=== PATIENT | female | born 1970 | race Caucasian/White ===

== ENCOUNTER 2019-10-11 02:12 | Outpatient (CLI) | payer BC, SELFPAY ==
[2019-10-11 18:20] LABS: SARS-CoV-2 RNA PCR Negative
== END 2019-10-11 02:13 | disposition home or self-care (01) ==
LOC: ANHCOVIDDT 02:13
PROVIDERS: PCP Internal Medicine; Visit Provider Obstetrics & Gynecology
DX: Z01.812 Encounter for preprocedural laboratory examination (principal); Z11.59 Encounter for screening for other viral diseases
CPT/HCPCS: 87635; C9803; U0003

== ENCOUNTER 2019-10-13 01:43 | Day surgery (SDC) | payer BC, SELFPAY ==
[2019-10-08 08:46] VITALS: BMI 36.3
[2019-10-13 07:44] VITALS: BP 129/82; PULSE 68; RESP 16; TEMP 36.1; O2SAT 98
[2019-10-13] MEDS: LACTATED RINGERS 1,000 ML 30 ML IV CONT (08:06)
[2019-10-13] MEDS: ACETAMINOPHEN 500 MG TABLET 1000 MG PO (08:09)
--- NOTE | 2019-10-13 08:10 | WPDANESEPPF ---
Anes - Initial Pre Proc Eval Procedure: Operation Date: 10/13/19 09:30 Proposed Procedures p Hysteroscopy with Biopsy of Endometrium - María De Anda MD Date/Time: 10/13/19 08:10 Surgeon: María De Anda MD Pre Op Diagnosis: post menopausal bleeding Patient Data Age: 48 Gender: F Height: 5 ft 3 in Weight: 91.6 kg Allergies Allergy/AdvReac Type Severity Reaction Status Date / Time No Known Allergies Allergy Unverified 10/13/19 07:56 Home Medications Medication Instructions Recorded Confirmed Type cholecalciferol (vitamin D3) 125 mcg PO DAILY 10/08/19 10/13/19 History [Vitamin D3] Patient hx anesthesia problems: none Family hx anesthesia problems: none [facility] Past Medical History Medical History Hx of migraines Social History Social History Smoking status: Never smoker Substance use: current Substance use type: marijuana Last use: 1 MONTH AGO Spiritual care concerns: No Anes - Eval Final PreProcedure Day of Procedure 10/13/19 08:10 Patient weight: obese Heart: regular rate and rhythm Lungs: clear to auscultation Airway: Mallampati scale class II Neurological: alert and oriented Last oral intake: >/= 8 hours ASA classification: II Emergent: no Anesthetic plan: proceed Anesthesia type and monitoring: general GIVS and standard monitoring Informed Consent: The patient's anesthetic plan and its attendant risks and benefits were discussed with the patient/family/POA. Questions were solicited and answers provided to the satisfaction of the patient/family/POA.
--- NOTE | 2019-10-13 09:15 | WPDHPUPDATE1 ---
History and Physical Update Update Date/Time: 10/13/19 09:15 History and Physical has been reviewed, including an updated exam of the patient. There are NO changes in the patient's condition. Risks, benefits, and alternatives have been discussed and questions answered. Patient agrees to proceed with procedure.
--- NOTE | 2019-10-13 10:14 | PM.PROC ---
Procedure Note - Detailed Date of procedure: 10/13/19 Pre-op diagnosis: post menopausal bleeding Abnormal uterine bleeding Post-op diagnosis: same Procedure performed: Hysteroscopy D&C Description of procedure: The patient was taken the operating room. She was prepped and draped in the dorsal lithotomy position after induction of mac anesthesia. A speculum was placed in the vagina. The cervix grasped with a tenaculum. The cervix was injected at 3 and 9:00 a.m. with 1% lidocaine. Cervix was dilated up to 1 cm. The hysteroscope was inserted the intrauterine cavity and the above findings were noted. A medium-size curette was then used to curettage all surfaces within the endometrial cavity. The endometrial curettings were collected on a Telfa. There were submitted to the pathology department. Hysteroscope was reinserted the intrauterine cavity to re-examine the endometrial surfaces. The hysteroscope was withdrawn. The tenaculum was removed. The speculum was removed. The patient tolerated the procedure well. She was taken recovery room stable condition. Sponge lap needle counts were correct x2. Anesthesia: MAC Surgeon: María De Anda MD Estimated blood loss (mL): 20 Drains: No Packing: No Pathology: yes Complications: No immediate complications Condition: stable Disposition: PACU Findings: Normal endometrium. There was normal appearing vulva vagina and cervix.
[2019-10-13 10:15] VITALS: BP 115/68; PULSE 66; RESP 12; O2SAT 93
[2019-10-13 10:45] VITALS: BP 111/76; PULSE 50; RESP 16
[2019-10-13 11:15] VITALS: BP 110/70; PULSE 58
[2019-10-13 11:35] VITALS: BP 108/70; PULSE 72; RESP 16
== END 2019-10-13 11:44 | disposition home or self-care (01) ==
PROVIDERS: PCP Family Medicine; Visit Provider Obstetrics & Gynecology
PROC: 0U5B8ZZ Destruction of Endometrium, Via Natural or Artificial Opening Endoscopic (ICD-10-PCS; CPT 58563; principal; 2019-10-13 09:30)
DX: N95.0 Postmenopausal bleeding (principal); N85.8 Other specified noninflammatory disorders of uterus; F12.90 Cannabis use, unspecified, uncomplicated; E66.9 Obesity, unspecified; Z68.35 Body mass index [BMI] 35.0-35.9, adult
CPT/HCPCS: 58558; 88305; A9270; J2250; J2704; J3010; J7030; J7120

== ENCOUNTER 2020-12-17 08:34 | Emergency (ER) | payer BC, SELFPAY ==
--- NOTE | ~2020-12-17 | XR_ITS ---
XR shoulder LT min 2V 12/17/2020 08:56 INDICATION: Left shoulder pain PROCEDURE: 4 views left shoulder COMPARISON: No prior studies for comparison. FINDINGS: Fracture, dislocation or subluxation is not identified. The soft tissues appear within norm al limits. No foreign bodies are identified. IMPRESSION: 1: NO ACUTE BONE OR JOINT ABNORMALITY IDENTIFIED. Reviewed, dictated and finalized at location A.
[2020-12-17 08:39] VITALS: BP 129/91; PULSE 89; RESP 17; TEMP 36.6; O2SAT 100
[2020-12-17] MEDS: KETOROLAC 30 MG/ML VIAL (*BKC) IM (09:18)
--- NOTE | 2020-12-17 09:23 | ED.UPPEXIN ---
HPI - Extremity Injury (Upper) General Chief Complaint: Extremity Injury, Upper Stated Complaint: L shoulder pain Time Seen by Provider: 12/17/20 08:51 Source: patient History of Present Illness HPI narrative: Patient resents with left shoulder pain. Patient has had shoulder pain for the past several months been doing physical therapy with limited benefit. This morning she felt a pop in her shoulder had increased pain and was concerned so came to the ER for evaluation. Her pain is sharp, constant, radiates down her arm, worse with moving her left upper extremity. She denies any numbness or tingling. Related Data Allergies Allergy/AdvReac Type Severity Reaction Status Date / Time No Known Allergies Allergy Verified 12/17/20 08:43 Review of Systems Review of Systems: CONSTITUTIONAL: Denies fever, chills, or sweats. EYES: Denies visual changes, redness, or discharge. ENT: Denies rhinorrhea, congestion, sore throat, or otalgia. CARDIOVASCULAR: Denies chest pain, palpitations, or edema. RESPIRATORY: Denies cough or dyspnea. GASTROINTESTINAL: Denies abdominal pain, nausea, vomiting, or diarrhea. GENITOURINARY: Denies dysuria or hematuria. SKIN: Denies rash or itching. MUSCULOSKELETAL: Denies back pain, or myalgia. NEUROLOGIC: Denies headache, numbness, dizziness, or weakness. PSYCHIATRIC: Denies anxiety or depression. All systems reviewed & are unremarkable except as noted in HPI and below PMFSH Social History Social History (Updated 12/17/20 @ 09:24 by Surendra Borrero MD) Substance use: never Exam Narrative: GENERAL: Well-appearing, well-nourished, and in no acute distress. HEAD: Normocephalic, atraumatic. EYES: PERRLA and EOMI. ENT: Nares clear, no rhinorrhea or epistaxis. Mucous membranes moist. NECK: Supple. No masses. No JVD EXTREMITIES: Mild diffuse tenderness of the left shoulder no obvious deformity no focal bony tenderness no edema no ecchymoses no open or draining wounds. Patient has 5 out of 5 strength in the distal extremity sensation is intact to light touch. Cap refill less than 2 seconds SKIN: Warm, dry, no rash. NEURO: No focal deficits. Alert and oriented x3. PSYCH: Normal mood and affect. Course Reevaluation(s) Reevaluation #1: Results reviewed with patient. Patient is comfortable outpatient plan. Date: 12/17/20 Time: 09:25 Vital Signs Vital signs: Vital Signs Temperature 36.6 C 12/17/20 08:39 Pulse Rate 89 12/17/20 08:39 Respiratory Rate 17 12/17/20 08:39 Blood Pressure 129/91 H 12/17/20 08:39 Pulse Oximetry 100 12/17/20 08:39 Temperature 36.6 C 12/17/20 08:39 Pulse Rate 89 12/17/20 08:39 Respiratory Rate 17 12/17/20 08:39 Blood Pressure 129/91 H 12/17/20 08:39 Pulse Oximetry 100 12/17/20 08:39 MDM - Extremity Injury (Upper) MDM Narrative Medical decision making narrative: H&P as above, vss, pt looks clinically well, exam with mild diffuse tenderness, imaging clinically unremarkable, additional labs/img considered, symptomatic relief available as needed, on reevaluation pt continues to looks clinically well. Suspect soft tissue injury possible rotator cuff versus labral injury, dns fracture, dislocation, major neurovascular compromise. plan to tx/monitor as op w/ pcm f/u findings/plan discussed with pt, pt agree/comfortable with plan, return precautions given Imaging Data Radiologist's impression: Impressions Shoulder X-Ray 12/17/20 09:03 IMPRESSION: 1: NO ACUTE BONE OR JOINT ABNORMALITY IDENTIFIED. Discharge Plan Discharge Clinical Impression: Shoulder pain Qualifiers: Chronicity: chronic Laterality: left Qualified Code(s): M25.512 - Pain in left shoulder Patient Disposition: Home, Self-Care Condition: Improved Instructions: Antibiotic Form, How to Use a Sling (ED), Exercises for Shoulder Flexion and Extension (ED), Exercises for Internal and External Shoulder Rotation (ED), Exercises for Shoulder Abduction and Adduc
== END 2020-12-17 09:43 | disposition home or self-care (01) ==
PROVIDERS: Emergency Provider Emergency Medicine; PCP Family Medicine
DX: M25.512 Pain in left shoulder (principal)
CPT/HCPCS: 73030; 96372; 99283; A4565; J1885

== ENCOUNTER 2021-07-17 09:17 | Emergency (ER) | payer BC, SELFPAY ==
--- NOTE | ~2021-07-17 | XR_ITS ---
EXAMINATION: XR chest 2V 07/17/2021 10:11 INDICATION: Chest palpitations PROCEDURE: 2 view chest COMPARISON: 11/19/2010 FINDINGS: The lungs are clear. The cardiomediastinal silhouette is within normal limits. There are no pleural effusions. There is no pneumothorax suspected. IMPRESSION: 1: NO ACUTE CARDIOPULMONARY DISEASE. Reviewed, dictated and finalized at location A.
--- NOTE | 2021-07-17 09:27 | ECG_ITS ---
Measurements Intervals [place] Rate: 58 P: 26 MT: 160 QRS: -6 QRSD: 102 T: 35 QT: 428 QTc: 424 Interpretive Statements SINUS BRADYCARDIA DELAYED PRECORDIAL R/S TRANSITION LOW QRS VOLTAGE IN PRECORDIAL LEADS BASELINE ARTIFACT- III, V5-V6 BORDERLINE ECG Electronically Signed On 07-17-2021 9:52:33 CDT by Blake Hernadez D.O.
[2021-07-17 09:38] VITALS: BP 135/108; PULSE 62; RESP 20; TEMP 36; O2SAT 100
[2021-07-17 09:52] LABS: Basophils Percent Auto 0.4 % (0.2-1.2); Eosinophils Absolute Auto 0.1 K/mm3 (0-0.3); Eosinophils Percent Auto 1.1 % (0-4.4); Hematocrit 43.3 % (37.0-47.0); Hemoglobin 14.1 g/dL (12.0-15.0); Immature Granulocyte Absolute 0.01 K/mm3 (0.00-0.031); Immature Granulocyte Percent A 0.2 % (0-0.5); Lymphocytes Absolute Auto 1.37 K/mm3 (0.9-3.2); Lymphocytes Percent Auto 25.4 % (18.3-44.2); Mean Corpuscular HGB Conc 32.6 g/dl (32-36); Mean Corpuscular Hemoglobin 30.4 pg (26-34); Mean Corpuscular Volume 93.3 fl (80-100); Mean Platelet Volume 11.7 fl (7.4-10.4); Monocytes Absolute Auto 0.3 K/mm3 (0.1-0.6); Monocytes Percent Auto 6.3 % (2.6-8.5); Neutrophils Absolute Auto 3.6 K/mm3 (1.3-6.7); Neutrophils Percent Auto 66.6 % (45.5-73.1); Platelet Count Result 191 k/mm3 (150-375); Red Blood Count 4.64 M/mm3 (4.2-5.4); Red Cell Distribution Width 12.8 % (11.5-14.5); White Blood Count 5.4 K/mm3 (4.5-10.0)
[2021-07-17 10:03] LABS: Alanine Aminotransferase 21 U/L (6-35); Albumin Level 4.2 g/dL (3.5-5.1); Alkaline Phosphatase 72 U/L (38-126); Anion Gap 6 mmol/L (8-16); Aspartate Amino Transferase 22 U/L (14-36); Bilirubin,Total 0.5 mg/dL (0.2-1.3); Blood Urea Nitrogen 9 mg/dL (7-17); Calcium 8.8 mg/dL (8.4-10.2); Carbon Dioxide 29 mmol/L (22-30); Chloride 106 mmol/L (98-107); Estimated CRCL calculation 80 ml/min; Estimated Glomerular Filt Rate > 60; Glucose 102 mg/dL (65-110); Lipase 61 U/L (23-300); Potassium 3.8 mmol/L (3.4-5.0); Sodium 141 mmol/L (137-145)
[2021-07-17 10:15] LABS: Troponin I < 0.012 ng/mL (0.000-0.034)
[2021-07-17 10:28] LABS: Prothrombin Time 12.9 Seconds (11.1-14.7)
[2021-07-17 10:29] LABS: Partial Thromboplastin Time 31.1 SECONDS (22.3-36.8)
--- NOTE | 2021-07-17 11:15 | PC.NURSE ---
pt sitting on bench in front of registration desk conversing on phone with her mother. overheard very loudly complaining that we are taking people in front of her. states she will probably while waiting. pt again made aware of deparment status and 2 divisions regarding team c.
[2021-07-17 11:51] VITALS: BP 127/93; PULSE 58; RESP 10; O2SAT 100
--- NOTE | 2021-07-17 12:28 | ED.ARRPALP ---
HPI - Arrhythmia/Palpitations General Chief Complaint: Arrhythmia/Palpitations Stated Complaint: heart jumping , nausea Time Seen by Provider: 07/17/21 11:55 History of Present Illness HPI narrative: 50 y/o female presents to the ER today for complaints of palpitations intermittently since yesterday evening. She reports some occasional dizziness that she associates with the palpitations. No shortness of breath. No chest pain. No fever, chills, cough or chest congestion. She denies any cardiac history. She denies any previous history of palpitations. Related Data Home Medications Medication Instructions Recorded Confirmed cholecalciferol (vitamin D3) 125 mcg PO DAILY 10/08/19 10/13/19 [Vitamin D3] Allergies Allergy/AdvReac Type Severity Reaction Status Date / Time No Known Allergies Allergy Verified 12/19/20 10:24 Review of Systems Constitutional: Constitutional: Denies chills, Denies fatigue and Denies fever(s) Eyes: Eyes: Denies change in vision ENT: Reports dizziness Cardiovascular: Cardiovascular: Reports as per HPI, Denies chest pain, Denies rapid heart rate and Denies radiating jaw, neck or arm pain Respiratory: Respiratory: Denies chest congestion, Denies cough, Denies dyspnea and Denies wheezing Gastrointestinal: Gastrointestinal: Denies abdominal pain, Denies constipation, Denies diarrhea, Denies nausea and Denies vomiting Genitourinary: Genitourinary: Reports no additional female genitourinary complaints Musculoskeletal: Musculoskeletal: Denies back pain Integumentary/Breasts: Skin/Breast: Denies rash Neurologic: Reports dizziness Psychiatric: Psychiatric: Reports no additional psychiatric complaints Endocrine: Endocrine: Reports no additional endocrine complaints Hematologic/Lymphatic: Hematologic/Lymphatic: Reports no additional hematologic/lymphatic complaints Allergic/Immunologic: Allergic/Immunologic: Reports no additional allergic/immunologic complaints [facility] Past Medical History Medical History Hx of migraines Social History Social History Smoking status: Never smoker Substance use: current Substance use type: marijuana Last use: 1 MONTH AGO Spiritual care concerns: No Exam Const: General: healthy appearing, no acute distress and alert Orientation/consciousness: patient oriented x3 HENMT: Head: normal to inspection Eyes: Conjunctivae: conjunctivae normal Pupils: Equal, round and reactive pupils present Neck: Neck: normal visual inspection Chest: Chest palpation & inspection: normal inspection of the chest Resp: Effort & Inspection: normal respiratory effort Auscultation: clear to auscultation bilaterally Cardio: Rate: regular rate Rhythm: regular rhythm GI: GI Palp: Yes Soft to palpation, No Tenderness to palpation present (GI) and No Guarding due to palpation present (GI) : General: Yes no CVA tenderness Skin: General skin exam: normal color Neuro: General: patient oriented x3 and moves all extremities Extrem: General: normal to inspection Psych: Mental Status: mental status grossly normal Affect: normal affect Attitude: cooperative Course Course Emergency Course: Normal work up today in the ER. I discussed with patient that she should stop drinking caffeine. Advised that she may need 24 hour monitor to be ordered by her PCP. She agrees to see her PCP for follow up in the short term. Vital Signs Vital signs: Vital Signs Temperature 36.0 C L 07/17/21 09:38 Pulse Rate 62 07/17/21 09:38 Respiratory Rate 20 07/17/21 09:38 Blood Pressure 135/108 H 07/17/21 09:38 Pulse Oximetry 100 07/17/21 09:38 Temperature 36.0 C L 07/17/21 09:38 Pulse Rate 56 L 07/17/21 12:48 Respiratory Rate 13 07/17/21 12:48 Blood Pressure 127/90 07/17/21 12:48 Pulse Oximetry 100 07/17/21 12:48 MDM - Arrhythmia
[2021-07-17 12:48] VITALS: BP 127/90; PULSE 56; RESP 13; O2SAT 100
== END 2021-07-17 12:50 | disposition home or self-care (01) ==
PROVIDERS: Emergency Medicine; Emergency Provider Nurse Practitioner Family; PCP Family Medicine
DX: R00.2 Palpitations (principal); R42 Dizziness and giddiness
CPT/HCPCS: 36415; 71046; 80053; 83690; 84484; 85025; 85610; 85730; 93005; 99284